=== PATIENT | female | born 1965 | race Two or more races ===

== ENCOUNTER 2018-02-21 07:07 | Emergency (ER) | payer SELFPAY ==
[2018-02-21] MEDS ORDERED: FENTANYL CITRATE INJ/PF 100 MCG/2 ML AMPUL IV ONE (08:04)
[2018-02-21] MEDS ORDERED: ONDANSETRON HCL INJ/PF 4 MG/2 ML SDV IV ONE (08:04)
[2018-02-21] MEDS ORDERED: NORMAL SALINE 1000 ML 1,000 ML IV ONE (08:05)
--- NOTE | 2018-02-21 08:10 | ER Document Report ---
ED General - General Chief Complaint: Abdominal Pain Stated Complaint: ABDOMINAL PAIN Time Seen by Provider: 02/21/18 07:49 Mode of Arrival: Ambulatory TRAVEL OUTSIDE OF THE [place] IN LAST 30 DAYS: No - HPI Patient complains to provider of: abdominal pain Onset: Other - Otherwise healthy 52-year-old female with a history of cholecystectomy in the past who presents for evaluation of recurrent loose bowel movements starting yesterday after eating [employer], she had crampy abdominal pain associated with it and had probably 10 loose bowel movements at which time her boyfriend gave her some Imodium to try and help with her symptoms it did help decrease her bowel frequency however it did continue to have pain. She denies fevers or chills, she has had episodes of dysuria and urinary tract infections in the past. The [place] did seem to help with her symptoms nothing seems to make it worse. - Related Data Allergies/Adverse Reactions: No Known Allergies Allergy (Unverified 03/07/14 08:30) Past Medical History - General Information source: Patient, Relative - Social History Smoking Status: Never Smoker Chew tobacco use (# tins/day): No Frequency of alcohol use: None Drug Abuse: None Family History: Reviewed & Not Pertinent Patient has suicidal ideation: No Patient has homicidal ideation: No Renal/ Medical History: Denies: Hx Peritoneal Dialysis Past Surgical History: Reports: Hx Cholecystectomy - 2003 Review of Systems - Review of Systems -: Yes All other systems reviewed and negative Physical Exam - Vital signs Vitals: Temp Pulse Resp BP Pulse Ox 97.6 F 76 16 113/69 99 02/21/18 07:11 02/21/18 07:11 02/21/18 07:11 02/21/18 07:11 02/21/18 07:11 - General General appearance: Appears well In distress: None - HEENT Head: Normocephalic Eyes: Normal Conjunctiva: Normal Cornea: Normal Extraocular movements intact: Yes Eyelashes: Normal Pupils: PERRL - Respiratory Respiratory status: No respiratory distress Chest status: Nontender Breath sounds: Normal Chest palpation: Normal - Cardiovascular Rhythm: Regular Heart sounds: Normal auscultation Murmur: No Friction rub: No Zahra's crunch: No - Abdominal Inspection: Normal Distension: Distended Tenderness: Other - Diffuse tenderness, most prominent in the suprapubic and lower aspect of the abdomen without any appreciable rebound or guarding, negative Leger sign, negative Rovsing sign - Back Back: Normal - Extremities General upper extremity: Normal inspection, Nontender, Normal ROM, Normal strength General lower extremity: Normal inspection, Nontender, Normal ROM, Normal strength, Normal weight bearing - Neurological Neuro grossly intact: Yes Cognition: Normal Orientation: AAOx4 En Coma Scale Eye Opening: Spontaneous [place] Coma Scale Verbal: Oriented [place] Coma Scale Motor: Obeys Commands En Coma Scale Total: 15 Speech: Normal Cranial nerves: Normal Cerebellar coordination: Normal - Psychological Associated symptoms: Normal affect Course - Re-evaluation Re-evalutation: 02/21/18 08:09 This a 52-year-old woman who comes in with a history of loose bowel movements and crampy abdominal pain in the setting of having eaten fast food yesterday. Her abdominal examination is benign and she is otherwise well-appearing. She has been able to tolerate p.o. Given that she does have some pain which radiates through the back will plan to obtain a lipase as well as a CBC and CMP and administer antiemetics as well as analgesia. We will plan for symptom control reassessment in a reexamination. Do not believe that this represents appendicitis, cholecystitis that she has had a cholecystectomy in the past, pancreatitis or some more sinister intra- abdominal process. 02/21/18 17:25 Patient was found to have pancreatitis on laboratory evaluation with a markedly elevated lipase. On reevaluation the patient notes that her pain is greatly improved at this time with the administration of fentanyl. She has been able to tolerate p.o. and her abdominal examination remains benign however given that she does have pancreatitis of an unknown etiology in the setting of having previously had a cholecystectomy we will plan for this patient undergo CT imaging of the abdomen and pelvis. CT imaging of the abdomen and pelvis demonstrates what appears to be a hemangioma without any obvious inflammation through the pancreas pancreatic pseudocyst. On reassessment patient's abdominal examination remains benign, spoke to the patient about her meningioma, did speak to her about her options including further imaging, further testing, admission to the hospital and monitoring or potential discharge home with a course of a liquid diet in addition analgesia following discussion with her as well as her children they decided that they would like to go home as an attempt to try conservative management. Believe it is safe for this patient to go home at this time she is hemodynamically stable. We will plan for her to go discharge with return precautions. - Vital Signs Vital signs: Temp Pulse Resp BP Pulse Ox 98.3 F 69 18 104/55 L 95 02/21/18 10:58 02/21/18 10:58 02/21/18 10:58 02/21/18 10:58 02/21/18 10:58 - Laboratory Result Diagrams: 02/21/18 08:20 02/21/18 08:20 Laboratory results interpreted by me: 02/21/18 02/21/18 08:13 08:20 Sodium 136.8 L Direct Bilirubin 0.8 H AST 107 H Lipase 1728.3 H Urine Blood SMALL H Ur Leukocyte Esterase TRACE H Discharge - Discharge Clinical Impression: Pancreatitis Qualifiers: Chronicity: acute Pancreatitis type: idiopathic Acute pancreatitis complication : no infection or necrosis Qualified Code(s): K85.00 - Idiopathic acute pancreatitis without necrosis or infection Food poisoning Qualifiers: Encounter type: initial encounter Injury intent: accidental or unintentional Qualified Code(s): T62.91XA - Toxic effect of unspecified noxious substance eaten as food, accidental (unintentional), initial encounter Abdominal pain Qualifiers: Abdominal location: generalized Qualified Code(s): R10.84 - Generalized abdominal pain Condition: Good Disposition: HOME, SELF-CARE Instructions: Abdominal Pain ([facility]), Antinausea Medication ([facility]), Clear Liquid Diet ([facility]), Oral Narcotic Medication ([facility]), Pancreatitis ([facility]) Additional Instructions: Your seen today in the emergency department for your food poisoning abdominal pain. View of pancreatitis. Use the pain medication as needed for your abdominal pain, use the nausea medication as needed for your nausea. Use a clear liquid diet as directed. Continue to monitor your symptoms in case of any worsening, inability to eat or drink fevers or chills return to the emergency room as previously directed. You have also been identified as having what appears to be a hemangioma in the lobe of your liver. You should tell your doctor about this finding. Prescriptions: Hydrocodone/Acetaminophen [[place] 5-325 mg Tablet] 1 tab PO Q6H PRN #20 tablet PRN Reason: Abdominal Cramping Ondansetron [Zofran Odt 4 mg Tablet] 1 tab PO Q4H PRN #20 tab.rapdis PRN Reason: For Nausea/Vomiting Forms: Return to Work Referrals: KATHY ISAACS MD [ACTIVE STAFF] - Follow up as needed
[2018-02-21 08:29] LABS: ABSOLUTE EOSINOPHILS # (AUTO) 0.1 10^3/uL (0.0-0.6); ABSOLUTE LYMPHOCYTES (AUTO) 2.2 10^3/uL (0.5-4.7); ABSOLUTE MONOCYTES (AUTO) 0.7 10^3/uL (0.1-1.4); BASOPHILS % (AUTO) 0.3 % (0-2); HEMATOCRIT 37.2 % (36.0-47.0); HEMOGLOBIN 12.6 g/dL (12.0-15.5); LYMPHOCYTES % (AUTO) 22.1 % (13-45); MEAN CORPUSCULAR HEMOGLOBIN 31.6 pg (27.0-33.4); MEAN CORPUSCULAR HGB CONC 33.8 g/dL (32.0-36.0); MEAN CORPUSCULAR VOLUME 93 fl (80-97); MONOCYTES % (AUTO) 7.2 % (3-13); PLATELET COUNT 352 10^3/uL (150-450); RED BLOOD COUNT 3.98 10^6/uL (3.72-5.28); RED CELL DISTRIBUTION WIDTH 13.1 % (11.5-14.0); SEGMENTED NEUTROPHILS % (AUTO) 69.4 % (42-78); TOTAL CELLS COUNTED % (AUTO) 100 %; WHITE BLOOD COUNT 10.1 10^3/uL (4.0-10.5)
[2018-02-21 08:47] LABS: ALANINE AMINOTRANSFERASE 37 U/L (9-52); ALBUMIN 3.9 g/dL (3.5-5.0); ALKALINE PHOSPHATASE 83 U/L (38-126); ANION GAP 7 (5-19); ASPARTATE AMINO TRANSFERASE 107 U/L (14-36); BILIRUBIN,DIRECT 0.8 mg/dL (0.0-0.4); BILIRUBIN,TOTAL 1.3 mg/dL (0.2-1.3); BLOOD UREA NITROGEN 12 mg/dL (7-20); CALCIUM 9.1 mg/dL (8.4-10.2); CARBON DIOXIDE 29 mmol/L (22-30); CHLORIDE 101 mmol/L (98-107); GLUCOSE 93 mg/dL (75-110); LIPASE 1728.3 U/L (23-300); SODIUM 136.8 mmol/L (137-145); TOTAL PROTEIN 7.6 g/dL (6.3-8.2)
[2018-02-21] MEDS ORDERED: FENTANYL CITRATE INJ/PF 100 MCG/2 ML AMPUL IV PRN (09:31)
[2018-02-21 09:52] LABS: BILIRUBIN,URINE NEGATIVE (NEGATIVE); COLOR,URINE STRAW; GLUCOSE, URINE NEGATIVE (NEGATIVE); KETONES,URINE NEGATIVE (NEGATIVE); LEUKOCYTE ESTERASE,URINE TRACE (NEGATIVE); NITRITE,URINE NEGATIVE (NEGATIVE); PROTEIN,URINE NEGATIVE (NEGATIVE); UROBILINOGEN,URINE NEGATIVE mg/dL (<2.0)
[2018-02-21 09:58] LABS: APPEARANCE,URINE SLIGHTLY HAZY; URINE SPECIFIC GRAVITY 1.003
--- NOTE | 2018-02-21 10:26 | RADIOLOGY REPORT (SQ) ---
EXAM DESCRIPTION: CT ABD/PELVIS WITH IV ONLY COMPLETED DATE/TIME: 02/21/2018 10:10 am REASON FOR STUDY: query pancreatic cyst COMPARISON: None. TECHNIQUE: CT scan of the abdomen and pelvis performed using helical scanning technique with dynamic intravenous contrast injection. No oral contrast. Images reviewed with lung, soft tissue, and bone windows. Reconstructed coronal and sagittal MPR images reviewed. Delayed images for evaluation of the urinary system also acquired. All images stored on PACS. All CT scanners at this facility use dose modulation, iterative reconstruction, and/or weight based d osing when appropriate to reduce radiation dose to as low as reasonably achievable (ALARA). [facility]: Dose Right [facility]: CareDose [facility]: Dose Right [facility]: Teradose 4D [facility]: [email or web address] CONTRAST TYPE AND DOSE: contrast/concentration: Isovue 350.00 mg/ml; Total Contrast Delivered: 61.0 ml; Total Saline Delivered: 65.0 ml RENAL FUNCTION: GFR > 60. RADIATION DOSE: CT Rad equipment meets quality standard of care and radiation dose reduction techniq ues were employed. CTDIvol: 5.3 - 6.6 mGy. DLP: 591 mGy-cm.. LIMITATIONS: None. FINDINGS: LOWER CHEST: No significant findings. No nodules or infiltrates. LIVER: 4.3 x 5.6 cm low-density lesion in lateral segment of the left lobe. Centripetal enhancement on delayed images. SPLEEN: Normal size. No focal lesions. PANCREAS: No masses. No significant calcifications. No adjacent inflammation or peripancreatic fluid collections. Pancreatic duct not dilated. GALLBLADDER: Surgically absent. ADRENAL GLANDS: No significant masses or asymmetry. RIGHT KIDNEY AND URETER: No solid masses. No significant calcifications. No hydronephrosis or hyd roureter. LEFT KIDNEY AND URETER: No solid masses. No significant calcifications. No hydronephrosis or hydr oureter. AORTA AND VESSELS: No aneurysm. No dissection. Renal arteries, SMA, celiac without stenosis. RETROPERITONEUM: No retroperitoneal adenopathy, hemorrhage or masses. BOWEL AND PERITONEAL CAVITY: No masses or inflammatory changes. No free fluid or peritoneal masses. APPENDIX: Not visualized. PELVIS: No mass. No free fluid. Normal bladder. ABDOMINAL WALL: Small fat containing umbilical hernia. BONES: No significant or acute findings. OTHER: No other significant finding. IMPRESSION: 1. No acute findings. 2. 5.5 cm liver lesion, probably a benign hemangioma. This could be further evaluated with MRI. TECHNICAL DOCUMENTATION: JOB ID: [id number] Quality ID # [id number]: Final reports with documentation of one or more dose reduction techniques (e.g., Au tomated exposure control, adjustment of the mA and/or kV according to patient size, use of iterative reconstruction technique) 2010 [employer]- All Rights Reserved Reading location - IP/workstation name: [email or web address]
[2018-02-21 10:59] VITALS: BP 104/55
== END 2018-02-21 11:09 | disposition home or self-care (01) ==
LOC: ER 07:07
DX: T62.91XA Toxic effect of unspecified noxious substance eaten as food, accidental (unintentional), initial encounter (principal); R10.84 Generalized abdominal pain; R19.4 Change in bowel habit; K85.00 Idiopathic acute pancreatitis without necrosis or infection; Z90.49 Acquired absence of other specified parts of digestive tract
CPT/HCPCS: 96376; 99284; 96361; 96374; 96375; 36415; 83690; 85025; 80053; 81001; 74177; J3010; J2405; J7030

== ENCOUNTER 2018-02-28 21:14 | Emergency (ER) | payer SELFPAY ==
[2018-02-28] MEDS ORDERED: ONDANSETRON HCL INJ/PF 4 MG/2 ML SDV IV ONE (22:33)
[2018-02-28] MEDS ORDERED: NORMAL SALINE 1000 ML 1,000 ML IV ONE (22:33)
--- NOTE | 2018-02-28 22:44 | ER Document Report ---
ED Medical Screen (RME) - General Chief Complaint: Abdominal Pain Stated Complaint: ABDOMINAL PAIN Time Seen by Provider: 02/28/18 22:25 Notes: Patient is a 52-year-old female presenting to the emergency department complaining of epigastric abdominal pain. Patient states she was here last week diagnosed with pancreatitis. Patient states she has continued with intermittent epigastric pain which also radiates to her left lower quadrant. Patient states she is also nauseated. Patient denies diarrhea or fever, dysuria , vaginal discharge. Patient states last menstrual period was last month she is unaware of the date. Past medical history: Pancreatitis, anxiety Medications: [place]'s wort, Echinacea Allergies: None Surgical history: Cholecystectomy Physical exam: Generalized tenderness epigastric region. Negative Leger sign negative McBurney's point tenderness. I have greeted and performed a rapid initial assessment of this patient. A comprehensive ED assessment and evaluation of the patient, analysis of test results and completion of the medical decision making process will be conducted by additional ED providers. TRAVEL OUTSIDE OF THE [place] IN LAST 30 DAYS: No - Related Data Allergies/Adverse Reactions: No Known Allergies Allergy (Unverified 03/07/14 08:30) Past Medical History - Social History Frequency of alcohol use: Occasional Renal/ Medical History: Denies: Hx Peritoneal Dialysis Past Surgical History: Reports: Hx Cholecystectomy - 2003 Physical Exam - Vital signs Vitals: Temp Pulse Resp BP Pulse Ox 97.7 F 62 16 115/70 99 02/28/18 21:27 02/28/18 21:27 02/28/18 21:27 02/28/18 21:27 02/28/18 21:27 Course - Vital Signs Vital signs: Temp Pulse Resp BP Pulse Ox 97.7 F 62 16 115/70 99 02/28/18 21:27 02/28/18 21:27 02/28/18 21:27 02/28/18 21:27 02/28/18 21:27
[2018-02-28 23:31] LABS: ABSOLUTE BASOPHILS # (AUTO) 0.1 10^3/uL (0.0-0.2); ABSOLUTE EOSINOPHILS # (AUTO) 0.1 10^3/uL (0.0-0.6); ABSOLUTE LYMPHOCYTES (AUTO) 3.1 10^3/uL (0.5-4.7); ABSOLUTE MONOCYTES (AUTO) 0.6 10^3/uL (0.1-1.4); ABSOLUTE NEUT (AUTO) 3.9 10^3/uL (1.7-8.2); BASOPHILS % (AUTO) 0.7 % (0-2); EOSINOPHILS % (AUTO) 1.5 % (0-6); HEMATOCRIT 36.4 % (36.0-47.0); HEMOGLOBIN 12.3 g/dL (12.0-15.5); LYMPHOCYTES % (AUTO) 39.7 % (13-45); MEAN CORPUSCULAR HEMOGLOBIN 31.7 pg (27.0-33.4); MEAN CORPUSCULAR HGB CONC 33.7 g/dL (32.0-36.0); MEAN CORPUSCULAR VOLUME 94 fl (80-97); MONOCYTES % (AUTO) 8.1 % (3-13); PLATELET COUNT 377 10^3/uL (150-450); RED BLOOD COUNT 3.87 10^6/uL (3.72-5.28); TOTAL CELLS COUNTED % (AUTO) 100 %; WHITE BLOOD COUNT 7.9 10^3/uL (4.0-10.5)
[2018-02-28 23:44] LABS: ALANINE AMINOTRANSFERASE 34 U/L (9-52); ALBUMIN 4.5 g/dL (3.5-5.0); ALKALINE PHOSPHATASE 81 U/L (38-126); ANION GAP 10 (5-19); ASPARTATE AMINO TRANSFERASE 23 U/L (14-36); BILIRUBIN,DIRECT 0.2 mg/dL (0.0-0.4); BILIRUBIN,TOTAL 0.5 mg/dL (0.2-1.3); BLOOD UREA NITROGEN 11 mg/dL (7-20); CALCIUM 9.8 mg/dL (8.4-10.2); CARBON DIOXIDE 30 mmol/L (22-30); CHLORIDE 101 mmol/L (98-107); GLUCOSE 100 mg/dL (75-110); LIPASE 123.1 U/L (23-300); SODIUM 140.8 mmol/L (137-145); TOTAL PROTEIN 8.2 g/dL (6.3-8.2)
[2018-03-01 00:39] LABS: APPEARANCE,URINE SLIGHTLY-CLOUDY; BILIRUBIN,URINE NEGATIVE (NEGATIVE); COLOR,URINE STRAW; GLUCOSE, URINE NEGATIVE (NEGATIVE); KETONES,URINE NEGATIVE (NEGATIVE); LEUKOCYTE ESTERASE,URINE TRACE (NEGATIVE); NITRITE,URINE NEGATIVE (NEGATIVE); PROTEIN,URINE NEGATIVE (NEGATIVE); URINE SPECIFIC GRAVITY 1.006; UROBILINOGEN,URINE NEGATIVE mg/dL (<2.0)
[2018-03-01] MEDS ORDERED: ONDANSETRON ODT 4 MG TAB (6 TAB/ER DISP) PO PRN (00:54)
[2018-03-01] MEDS ORDERED: SUCRALFATE 1 GM TABLET PO ONE (01:01)
[2018-03-01] MEDS ORDERED: FAMOTIDINE INJ/PF 20 MG/2 ML SDV IV ONE (01:01)
--- NOTE | 2018-03-01 01:17 | ER Document Report ---
ED General - General Chief Complaint: Abdominal Pain Stated Complaint: ABDOMINAL PAIN Time Seen by Provider: 02/28/18 22:25 Notes: Patient is a 52-year-old female presenting to the emergency department complaining of epigastric abdominal pain. Patient states she was here last week diagnosed with pancreatitis. Patient states she has continued with intermittent epigastric pain which also radiates to her left lower quadrant. Patient states she is also nauseated. Patient denies diarrhea or fever, dysuria , vaginal discharge, chest pains, SOB. Patient states last menstrual period was last month she is unaware of the date. Past medical history: Pancreatitis, anxiety Medications: [place]'s wort, Echinacea Allergies: None Surgical history: Cholecystectomy TRAVEL OUTSIDE OF THE [place] IN LAST 30 DAYS: No - Related Data Allergies/Adverse Reactions: No Known Allergies Allergy (Unverified 03/07/14 08:30) Past Medical History - General Information source: Patient - Social History Smoking Status: Never Smoker Frequency of alcohol use: Occasional Lives with: Family Family History: Reviewed & Not Pertinent Patient has suicidal ideation: No Patient has homicidal ideation: No Renal/ Medical History: Denies: Hx Peritoneal Dialysis Past Surgical History: Reports: Hx Cholecystectomy - 2003 Review of Systems - Review of Systems Constitutional: See HPI EENT: No symptoms reported Cardiovascular: See HPI Respiratory: See HPI Gastrointestinal: See HPI Genitourinary: See HPI Female Genitourinary: See HPI Musculoskeletal: See HPI Skin: No symptoms reported Hematologic/Lymphatic: No symptoms reported Neurological/Psychological: No symptoms reported Physical Exam - Vital signs Vitals: Temp Pulse Resp BP Pulse Ox 97.7 F 62 16 115/70 99 02/28/18 21:27 02/28/18 21:27 02/28/18 21:27 02/28/18 21:27 02/28/18 21:27 - Notes Notes: GENERAL: Alert, interacts well. No acute distress. HEAD: Normocephalic, atraumatic. EYES: Pupils equal, round, and reactive to light. Extraocular movements intact. ENT: Oral mucosa moist, tongue midline. NECK: Full range of motion. Supple. Trachea midline. LUNGS: Clear to auscultation bilaterally, no wheezes, rales, or rhonchi. No respiratory distress. HEART: Regular rate and rhythm. No murmur ABDOMEN: Soft, Non-distended. Bowel sounds present in all 4 quadrants. Generalized pain palpation epigastric region. Leger sign negative, no McBurney 's point tenderness. No CVA tenderness bilaterally EXTREMITIES: Moves all 4 extremities spontaneously. No edema, normal radial and dorsalis pedis pulses bilaterally. No cyanosis. BACK: no cervical, thoracic, lumbar midline tenderness. No saddle anesthesia, normal distal neurovascular exam. NEUROLOGICAL: Alert and oriented x3. Normal speech. cranial nerves II through XII grossly intact PSYCH: Normal affect, normal mood. SKIN: Warm, dry, normal turgor. No rashes or lesions noted. Course - Re-evaluation Re-evalutation: 03/01/18 01:11 Discussed with patient current lab results to include lipase within normal limits. Patient states she feels better after IV fluids and Zofran. States she is no longer nauseated. Patient does states she has a "weird taste in my mouth". Patient currently does not have insurance and stated she was unable to fill the antinausea medications that were given to her last time she was in the emergency room. Discussed with patient and boyfriend in the room the good Rx application on her phone for prescription savings. Discussed giving the patient Pepcid and Carafate for indigestion and follow-up with gastroenterology. Patient then reminds me that she does not have insurance and will be unable to do any follow-up. Discussed with patient return to emergency room for any other worsening symptom. No leukocytosis no urinary tract infection no pancreatitis on labs. Likely getting over pancreatitis, gastritis , viral illness. - Vital Signs Vital signs: Temp Pulse Resp BP Pulse Ox 97.7 F 62 16 115/70 99 02/28/18 21:27 02/28/18 21:27 02/28/18 21:27 02/28/18 21:27 02/28/18 21:27 - Laboratory Result Diagrams: 02/28/18 23:20 02/28/18 23:20 Laboratory results interpreted by me: 03/01/18 00:11 Urine Blood MODERATE H Ur Leukocyte Esterase TRACE H Discharge - Discharge Clinical Impression: Nausea Gastritis Qualifiers: Gastritis type: other gastritis Chronicity: acute Gastritis bleeding: presence of bleeding unspecified Qualified Code(s): K29.00 - Acute gastritis without bleeding Condition: Stable Disposition: HOME, SELF-CARE Instructions: Abdominal Pain ([facility]) Additional Instructions: As we discussed your signs and symptoms are likely due to gastritis. Your pancreatic enzymes showed no elevation. Your urine showed no signs of infection. Your lab work showed no signs of infection or anemia. You should take prescribed medications as prescribed. Please return to the emergency room should he have any concerning symptoms. Prescriptions: Famotidine [Pepcid 40 mg Tablet] 40 mg PO DAILY #30 tablet Ondansetron [Zofran Odt 4 mg Tablet] 1 - 2 tab PO Q4H PRN #15 tab.rapdis PRN Reason: For Nausea/Vomiting Sucralfate [Carafate 1 gm Tablet] 1 gm PO QID #20 tablet
[2018-03-01 02:30] VITALS: BP 114/66
== END 2018-03-01 02:08 | disposition home or self-care (01) ==
LOC: ER 21:14
DX: K29.00 Acute gastritis without bleeding (principal); R11.0 Nausea; Z87.19 Personal history of other diseases of the digestive system; Z90.49 Acquired absence of other specified parts of digestive tract
CPT/HCPCS: 99284; 96361; 96374; 96375; 36415; 83690; 85025; 81025; 80053; 81001; J2405; J7030; S0028

== ENCOUNTER 2019-06-17 19:47 | Emergency (ER) | payer SELFPAY ==
[2019-06-17] MEDS ORDERED: ONDANSETRON 4 MG TAB.RAPDIS PO ONE (20:22)
--- NOTE | 2019-06-17 20:24 | ER Document Report ---
ED Medical Screen (RME) - General Chief Complaint: Nausea/Vomiting/Diarrhea Stated Complaint: FEVER,VOMITING Time Seen by Provider: 06/17/19 20:19 Mode of Arrival: Ambulatory Information source: Patient Notes: Mom 53-year-old female presents emergency department with complaints of fever abdominal pain nausea vomiting diarrhea headache reports she just does not feel well, really tired. Patient reports she works at a [employer]. She reports everybody is ill there. She did not receive the flu vaccine. Took Advil prior to arrival and reports her head feels a little bit better. Patient reports very mild diarrhea today. No vomiting since yesterday. I have greeted and performed a rapid initial assessment of this patient. A comprehensive ED assessment and evaluation of the patient, analysis of test results and completion of the medical decision making process will be conducted by additional ED providers.. TRAVEL OUTSIDE OF THE [place] IN LAST 30 DAYS: No - Related Data Allergies/Adverse Reactions: No Known Allergies Allergy (Unverified 06/17/19 20:17) Home Medications: OTC cold medicines Past Medical History Renal/ Medical History: Denies: Hx Peritoneal Dialysis Past Surgical History: Reports: Hx Cholecystectomy - 2003 Physical Exam - Vital signs Vitals: Temp Pulse BP Pulse Ox 98.1 F 70 136/65 H 99 06/17/19 19:59 06/17/19 19:59 06/17/19 19:59 06/17/19 19:59 Course - Vital Signs Vital signs: Temp Pulse Resp BP Pulse Ox 98.1 F 70 136/65 H 99 06/17/19 19:59 06/17/19 19:59 06/17/19 19:59 06/17/19 19:59
[2019-06-17 21:06] LABS: ABSOLUTE EOSINOPHILS # (AUTO) 0.1 10^3/uL (0.0-0.6); ABSOLUTE LYMPHOCYTES (AUTO) 2.8 10^3/uL (0.5-4.7); ABSOLUTE MONOCYTES (AUTO) 0.5 10^3/uL (0.1-1.4); ABSOLUTE NEUT (AUTO) 3.2 10^3/uL (1.7-8.2); BASOPHILS % (AUTO) 0.4 % (0-2); EOSINOPHILS % (AUTO) 1.2 % (0-6); HEMATOCRIT 37.2 % (36.0-47.0); HEMOGLOBIN 12.6 g/dL (12.0-15.5); LYMPHOCYTES % (AUTO) 42.2 % (13-45); MEAN CORPUSCULAR HEMOGLOBIN 31.7 pg (27.0-33.4); MEAN CORPUSCULAR HGB CONC 33.9 g/dL (32.0-36.0); MEAN CORPUSCULAR VOLUME 94 fl (80-97); MONOCYTES % (AUTO) 6.9 % (3-13); PLATELET COUNT 365 10^3/uL (150-450); RED BLOOD COUNT 3.98 10^6/uL (3.72-5.28); RED CELL DISTRIBUTION WIDTH 13.9 % (11.5-14.0); SEGMENTED NEUTROPHILS % (AUTO) 49.3 % (42-78); TOTAL CELLS COUNTED % (AUTO) 100 %; WHITE BLOOD COUNT 6.6 10^3/uL (4.0-10.5)
[2019-06-17 21:12] LABS: APPEARANCE,URINE TURBID; BILIRUBIN,URINE NEGATIVE (NEGATIVE); GLUCOSE, URINE NEGATIVE (NEGATIVE); KETONES,URINE TRACE mg/dL (NEGATIVE); LEUKOCYTE ESTERASE,URINE LARGE (NEGATIVE); NITRITE,URINE NEGATIVE (NEGATIVE); PROTEIN,URINE 100 mg/dL (NEGATIVE); URINE SPECIFIC GRAVITY 1.023
[2019-06-17 21:18] LABS: COLOR,URINE DARK YELLOW
[2019-06-17 21:19] LABS: ALBUMIN 4.3 g/dL (3.5-5.0); ALKALINE PHOSPHATASE 86 U/L (38-126); ANION GAP 6 (5-19); ASPARTATE AMINO TRANSFERASE 22 U/L (14-36); BILIRUBIN,TOTAL 0.5 mg/dL (0.2-1.3); BLOOD UREA NITROGEN 17 mg/dL (7-20); CALCIUM 9.4 mg/dL (8.4-10.2); CARBON DIOXIDE 30 mmol/L (22-30); CHLORIDE 102 mmol/L (98-107); GLUCOSE 95 mg/dL (75-110); POTASSIUM 4.1 mmol/L (3.6-5.0); TOTAL PROTEIN 7.9 g/dL (6.3-8.2)
[2019-06-17 21:22] LABS: A TYPE INFLUENZA AG NEGATIVE (NEGATIVE); B INFLUENZA AG NEGATIVE (NEGATIVE)
[2019-06-18] MEDS ORDERED: LEVOFLOXACIN 750 MG TABLET PO ONE (00:07)
[2019-06-18] MEDS ORDERED: ONDANSETRON ODT 4 MG TAB (6 TAB/ER DISP) PO PRN (00:07)
[2019-06-18] MEDS ORDERED: NITROFURANTOIN MONOHYD/M-CRYST 100 MG CAPSULE PO ONE (00:08)
--- NOTE | 2019-06-18 00:20 | ER Document Report ---
Entered by MONIKA CARR SCRIBE 06/18/19 0000 Acting as scribe for:ANNA GARCIA IV, MD ED General - General Chief Complaint: Nausea/Vomiting/Diarrhea Stated Complaint: FEVER,VOMITING Time Seen by Provider: 06/17/19 20:19 Primary Care Provider: XANDER BEDOYA MD [HONORARY] - Follow up as needed Mode of Arrival: Ambulatory Notes: This 53 year old female patient presents to the ED today with complaints of nausea, vomiting, and diarrhea that began prior to arrival. Patient reports associated subjective fevers, body aches, fatigue, headache, and abdominal pain. Patient states that her last episode of vomiting was yesterday at noon and that the diarrhea continues today. 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 Patient states that she has not received a flu vaccine. Patient states that she took OTC cold medications without relief and advil prior to arrival with mild relief for her headache. TRAVEL OUTSIDE OF THE [place] IN LAST 30 DAYS: No - Related Data Allergies/Adverse Reactions: No Known Allergies Allergy (Unverified 06/17/19 20:17) Home Medications: OTC cold medicines Past Medical History - General Information source: Patient - Social History Smoking Status: Never Smoker Cigarette use (# per day): No Chew tobacco use (# tins/day): No Smoking Education Provided: No Family History: Reviewed & Not Pertinent Patient has suicidal ideation: No Patient has homicidal ideation: No Past Surgical History: Reports: Hx Cholecystectomy - 2003 Review of Systems - Review of Systems Constitutional: See HPI, Fever, Other - Fatigue EENT: No symptoms reported Cardiovascular: No symptoms reported Respiratory: No symptoms reported Gastrointestinal: See HPI, Abdominal pain, Diarrhea, Nausea, Vomiting Genitourinary: No symptoms reported Female Genitourinary: No symptoms reported Musculoskeletal: See HPI, Other - Body aches Skin: No symptoms reported Hematologic/Lymphatic: No symptoms reported Neurological/Psychological: See HPI, Headaches -: Yes All other systems reviewed and negative Physical Exam - Vital signs Vitals: Temp Pulse BP Pulse Ox 98.1 F 70 136/65 H 99 06/17/19 19:59 06/17/19 19:59 06/17/19 19:59 06/17/19 19:59 - General General appearance: Alert In distress: None - HEENT Head: Normocephalic, Atraumatic Eyes: Normal Pupils: PERRL - Respiratory Respiratory status: No respiratory distress Chest status: Nontender Breath sounds: Normal Chest palpation: Normal - Cardiovascular Rhythm: Regular Heart sounds: Normal auscultation Murmur: No - Abdominal Inspection: Normal Distension: No distension Bowel sounds: Normal Tenderness: Nontender - Abdomen soft Organomegaly: No organomegaly - Back Back: Normal, Nontender - Extremities General upper extremity: Normal inspection General lower extremity: Normal inspection - Neurological Neuro grossly intact: Yes - Psychological Associated symptoms: Normal affect, Normal mood - Skin Skin Temperature: Warm Skin Moisture: Dry Skin Color: Normal Course - Vital Signs Vital signs: Temp Pulse Resp BP Pulse Ox 98.1 F 70 136/65 H 99 06/17/19 19:59 06/17/19 19:59 06/17/19 19:59 06/17/19 19:59 - Laboratory Result Diagrams: 06/17/19 20:30 06/17/19 20:30 Laboratory results interpreted by me: 06/17/19 20:30 Urine Protein 100 H Urine Ketones TRACE H Urine Blood MODERATE H Urine Urobilinogen 2.0 H Ur Leukocyte Esterase LARGE H Discharge - Discharge Clinical Impression: Viral gastroenteritis UTI (urinary tract infection) Qualifiers: Urinary tract infection type: site unspecified Hematuria presence: with hematuria Qualified Code(s): N39.0 - Urinary tract infection, site not specified; R31.9 - Hematuria, unspecified Condition: Good Disposition: HOME, SELF-CARE Instructions: Gastroenteritis (adult) ([facility]), Urinary Tract Infection ([facility]) Prescriptions: Nitrofurantoin Macrocrystal [Macrodantin] 100 mg PO BID 10 Days #20 capsule Referrals: XANDER BEDOYA MD [HONORARY] - Follow up as needed I personally performed the services described in the documentation, reviewed and edited the documentation which was dictated to the scribe in my presence, and it accurately records my words and actions.
[2019-06-18 00:57] VITALS: BP 106/69
== END 2019-06-18 00:57 | disposition home or self-care (01) ==
LOC: ER 19:47
DX: A08.4 Viral intestinal infection, unspecified (principal); N39.0 Urinary tract infection, site not specified; R31.9 Hematuria, unspecified; R11.2 Nausea with vomiting, unspecified; R50.9 Fever, unspecified; R10.9 Unspecified abdominal pain; M79.10 Myalgia, unspecified site; R53.83 Other fatigue; R51 Headache
CPT/HCPCS: 99284; 36415; 85025; 86308; 80053; 81001; 87804; S0119; J8499